=== PATIENT | male | born 1985 | race American Indian/Alaskan Native ===

== ENCOUNTER 2017-04-14 20:18 | Emergency (ER) | payer BC ==
[2017-04-14] MEDS ORDERED: Oxycodone/Acetaminophen 5/325 mg Tab PO STA (21:18)
[2017-04-14] MEDS ORDERED: Oxycodone/Acetaminophen 5/325 mg Tab ONE (21:32)
--- NOTE | 2017-04-14 21:54 | C.PDOC ---
Time Seen by Provider: 04/14/17 20:46 Chief Complaint (Nursing): Rib Injury Past Medical History Vital Signs: Last Vital Signs Temp 98.0 F 04/14/17 20:44 Pulse 91 H 04/14/17 20:44 Resp 18 04/14/17 20:44 BP 106/62 04/14/17 20:44 Pulse Ox 98 04/14/17 20:44 Family History: States: Unknown Family Hx - Social History Hx Alcohol Use: No Hx Substance Use: No - Immunization History Hx Tetanus Toxoid Vaccination: No Hx Influenza Vaccination: No Hx Pneumococcal Vaccination: No ED Course And Treatment O2 Sat by Pulse Oximetry: 98 Disposition - Disposition Referrals: [facility] [Outside] Disposition: HOME/ ROUTINE Disposition Time: 21:52 Condition: GOOD Additional Instructions: Follow up with the medical doctor within 1-2 days. Return if worsened. Prescriptions: Naproxen [Naprosyn] 500 mg PO BID #20 tab traMADol [Ultram] 50 mg PO Q6 PRN #20 tab PRN Reason: Pain Instructions: Rib Fracture (ED) Forms: [employer] ([place]) - Clinical Impression Clinical Impression: Rib contusion
--- NOTE | 2017-04-14 21:57 | C.PDOC ---
History Of Present Illness 31 year old male who presents to the ER with a complaint of right rib pain since yesterday. Patient states he was turning his body to right side and sneezed; which caused him to feel a sudden onset of pain. Patient reports the pain has now worsened with movement, sneezing, and deep inspiration. Denies chest pain, SOB, nausea, vomiting, or diarrhea. Time Seen by Provider: 04/14/17 20:46 Chief Complaint (Nursing): Rib Injury History Per: Patient History/Exam Limitations: no limitations Onset/Duration Of Symptoms: Days Current Symptoms Are (Timing): Still Present Recent travel outside of the [place]: No Past Medical History Reviewed: Historical Data, Nursing Documentation, Vital Signs Vital Signs: Last Vital Signs Temp 98 F 04/14/17 22:10 Pulse 78 04/14/17 22:10 Resp 20 04/14/17 22:10 BP 150/100 H 04/14/17 22:10 Pulse Ox 97 04/14/17 22:10 - Medical History PMH: No Chronic Diseases Surgical History: No Surg Hx Family History: States: Unknown Family Hx - Social History Hx Alcohol Use: No Hx Substance Use: No - Immunization History Hx Tetanus Toxoid Vaccination: No Hx Influenza Vaccination: No Hx Pneumococcal Vaccination: No Review Of Systems Cardiovascular: Negative for: Chest Pain Respiratory: Negative for: Shortness of Breath Gastrointestinal: Negative for: Nausea, Vomiting, Diarrhea Musculoskeletal: Positive for: Other (Right Rib Pain) Physical Exam - Physical Exam Appears: Non-toxic Skin: Normal Color, Warm, Dry Head: Atraumatic, Normacephalic Oral Mucosa: Moist Chest: Symmetrical, Tenderness (To right lateral ribs between the 8th and 10th ribs) Cardiovascular: Rhythm Regular, No Murmur Respiratory: Normal Breath Sounds, No Decreased Breath Sounds, No Wheezing Neurological/Psych: Oriented x3, Normal Speech, Normal Cognition ED Course And Treatment O2 Sat by Pulse Oximetry: 98 (Room air) Pulse Ox Interpretation: Normal - Radiology CXR: Interpreted by Me, Viewed By Me CXR Interpretation: Yes: No Acute Disease (No fracture). No: Pnemothorax Progress Note: CXR ordered. Percocet and toradol administered. On reevaluation, patient's pain has much improved; will instruct to follow up with PMD. Medical Decision Making Medical Decision Making: On re-exam, the patient reports improvement of symptoms. Lungs are CTA, heart is RRR, Abdomen is soft, non-tender and patient is tolerating PO well. Follow up with the medical doctor within 1-2 days. Return if worsened. Disposition - Disposition Referrals: [facility] [Outside] Disposition: HOME/ ROUTINE Disposition Time: 21:52 Condition: GOOD Additional Instructions: Follow up with the medical doctor within 1-2 days. Return if worsened. Prescriptions: Naproxen [Naprosyn] 500 mg PO BID #20 tab traMADol [Ultram] 50 mg PO Q6 PRN #20 tab PRN Reason: Pain Instructions: Rib Fracture (ED) Forms: [facility] [facility] ([place]), Work Excuse - Clinical Impression Clinical Impression: Rib contusion - Scribe Statement The provider has reviewed the documentation as recorded by the Scribshonna Walker All medical record entries made by the Scribe were at my direction and personally dictated by me. I have reviewed the chart and agree that the record accurately reflects my personal performance of the history, physical exam, medical decision making, and the department course for this patient. I have also personally directed, reviewed, and agree with the discharge instructions and disposition.
[2017-04-14 22:11] VITALS: BP 150/100; PULSE 78; RESP 20; TEMP 98
[2017-04-14 22:39] VITALS: O2SAT 98
--- NOTE | 2017-04-15 08:02 | RAD ---
PROCEDURE: HISTORY: R sided rib pain COMPARISON: 11/18/2016 TECHNIQUE: Frontal radiograph of the chest and multiple oblique radiographs of the right ribs were obtained. FINDINGS: RIGHT RIBS: No fracture or focal lesion visualized. LUNGS: Clear. PLEURA: No pneumothorax or pleural fluid. CARDIOVASCULAR: Normal sized heart. No pulmonary vascular congestion. OTHER FINDINGS: None. IMPRESSION: Unremarkable radiographs of the chest and right ribs. No right rib fracture.
== END 2017-04-14 22:10 | disposition home or self-care (01) ==
LOC: C.ER 20:18
DX: S20.211A Contusion of right front wall of thorax, initial encounter (principal); X58.XXXA Exposure to other specified factors, initial encounter; Y92.9 Unspecified place or not applicable
CPT/HCPCS: 71101; 96372; 99283; J1885